=== PATIENT | female | born 1985 | race Caucasian/White ===

== ENCOUNTER 2016-12-16 07:47 | Emergency (ER) | payer MEDICAID, OTHER ==
[~2016-12-16] VITALS: Wt 77.0 kg
[~2016-12-16 07:47] MED LIST: BEN50 PO; NO MEDS; PRED20TA PO; PREN1TAB49
[2016-12-16] MEDS ORDERED: ONDANSETRON (ODT) 4 MG TAB ODT STA (08:05)
--- NOTE | 2016-12-16 08:09 | ERD ---
ER Documentation Chief Complaint Date/Time DATE: 12/16/16 TIME: 08:06 Chief Complaint VAG BLEED INTERMITTENT FOR 1 WK . MILD DYSURIA. NO CRAMPING. 7 WKS PREG HPI This a 31-year-old female who presents the emergency department today complaining of some vaginal spotting that has been intermittent for the past week and worse last night. Patient indicates she is approximately 7 weeks . States that last week she saw her primary care doctor and had plans referral to an [facility]. States that they cindi labs and checked her urine. States she has some dysuria. Denies any fevers or chills. States she has some nausea but no vomiting. ROS All systems reviewed and are negative except as per history of present illness. Medications Home Meds Active Scripts Ondansetron Hcl* (Zofran*) 4 Mg Tablet, 4 MG PO Q6H for NAUSEA AND/OR VOMITING, #30 TAB Prov:BRY KAM PA-C 12/16/16 Acetaminophen* (Tylophen*) 500 Mg Capsule, 1 CAP PO Q6H Y for PAIN AND OR ELEVATED TEMP, #30 CAP Prov:BRY KAM PA-C 12/16/16 Diphenhydramine Hcl* (Benadryl*) 50 Mg Cap, 50 MG PO Q6H Y for rash,itch, #14 CAP Prov:CORAL ENCARNACION DO 08/15/15 Prednisone* (Prednisone*) 20 Mg Tab, 40 MG PO DAILY for 5 Days, TAB Prov:CORAL ENCARNACION DO 08/15/15 Reported Medications [No Meds] No Conflict Check 07/30/10 Vits W-Ca,Fe,Fa(<1MG) () 1 Tab Tablet 10/11/09 Allergies Allergies: Coded Allergies: Sulfa (Sulfonamide Antibiotics) (Verified Allergy, Unknown, 08/15/15) PMhx/Soc History of Surgery: No Anesthesia Reaction: No Hx Neurological Disorder: No Hx Respiratory Disorders: No Hx Cardiac Disorders: No Hx Psychiatric Problems: No Hx Miscellaneous Medical Probl: No Hx Alcohol Use: No Hx Substance Use: No Hx Tobacco Use: No Physical Exam Vitals Vital Signs Date Time Temp Pulse Resp B/P Pulse Ox O2 Delivery O2 Flow Rate FiO2 12/16/16 07:52 97.9 89 20 130/82 100 Physical Exam Const: No acute distress Head: Atraumatic Eyes: Normal Conjunctiva ENT: Normal External Ears, Nose and Mouth. Neck: Full range of motion..~ No meningismus. Resp: Clear to auscultation bilaterally Cardio: Regular rate and rhythm, no murmurs Abd: Soft, non tender, non distended. Normal bowel sounds Skin: No petechiae or rashes Neur: Awake and alert Psych: Normal Mood and Affect Result Diagram: 12/16/16817 Results 24 hrs Laboratory Tests Test 12/16/16 08:16 12/16/16 08:18 Urine Color LT. YELLOW Urine Clarity CLEAR Urine pH 5.5 Urine Specific [place] 1.025 Urine Ketones NEGATIVE Urine Nitrite NEGATIVE Urine Bilirubin NEGATIVE Urine Urobilinogen 0.2 E.U./dL Urine Leukocyte Esterase NEGATIVE Urine Microscopic RBC 0-2/HPF Urine Microscopic WBC 0-2/HPF Urine Epithelial Cells FEW Urine Bacteria FEW Urine Hemoglobin 2+ Urine Glucose 0.1%% Urine Total Protein NEGATIVE White Blood Count 7.210^3/ul Red Blood Count 4.1910^6/ul Hemoglobin 13.2g/dl Hematocrit 39.7% Mean Corpuscular Volume 94.7fl Mean Corpuscular Hemoglobin 31.5pg Mean Corpuscular Hemoglobin Concent 33.2g/dl Red Cell Distribution Width 13.1% Platelet Count 44822^3/UL Mean Platelet Volume 9.0fl Neutrophils % 66.9% Lymphocytes % 25.9% Monocytes % 6.3% Eosinophils % 0.4% Basophils % 0.4% Nucleated Red Blood Cells % 0.0/100WBC Neutrophils # 4.810^3/ul Lymphocytes # 1.910^3/ul Monocytes # 0.510^3/ul Eosinophils # 0.010^3/ul Basophils # 0.010^3/ul Nucleated Red Blood Cells # 0.010^3/ul Beta HCG, Quantitative 59558.0mIU/ml Current Medications Medications (Trade) Dose Ordered Sig/Saroj Route PRN Reason Start Time Stop Time Status Last Admin Dose Admin Ondansetron HCl (Zofran Odt) 4 mg ONCE STAT ODT 12/16/16 08:05 12/16/16 08:07 DC 12/16/16 08:21 DIAGNOSTIC IMAGING REPORT Patient: RAMIRO WHATLEY : 1985 Age: 31 Sex: F MR #: [id number] DOS: 12/16/16 0805 Ordering MD: BRY KAM PA-C Location: [facility] Room/Bed: PROCEDURE: US Obstetric less than 14 weeks. CLINICAL INDICATION: , vaginal bleeding TECHNIQUE: Transabdominal and transvaginal imaging of the pelvis was performed. Images are reviewed on a high-resolution PACS workstation. COMPARISON: None available FINDINGS: Single intrauterine gestation is identified. heart rate is 122 bpm. [place]-rump length = 4.9 cm. Gestational age is 6 weeks 1 day and YULISSA is 08/10/2017 by ultrasound criteria. Cervical Nabothian cyst is incidentally noted. Right ovary is unremarkable. Left ovary demonstrates a 2.4 cm simple cyst. No ovarian torsion, adnexal mass or pelvic free fluid is identified. IMPRESSION: 1. Single live intrauterine with an estimated gestational age of 6 weeks 1 day by ultrasound criteria, as above. 2. Left ovary demonstrates a 2.4 cm simple cyst. No sonographic evidence of ectopic gestation is seen at this time. RPTAT: EE .Marco Bustos MD, MD Date Time Electronically viewed and signed by .Marco Bustos MD, MD on 12/16/2016 09: 09 .R/ CC: BRY KAM PA-C Procedures/MDM This a A1 31-year-old female who presents to the emergency department today complaining of intermittent vaginal spotting for the past week that is worse last night. Patient indicates she is approximately 7 weeks . Given this I did obtain a complete OB workup/. Laboratory work shows no elevated white blood cell count. She is not anemic. UA is negative for infection however there is a small amount of glucose in the urine. I have explained to the patient that she does need to follow-up with an [facility] clinic for further evaluation for possible gestational diabetes. Beta quant hCG 24591 Rh status O negative. Patient was given RhoGam. Ultrasound shows a single live intrauterine with an estimated gestational age of 6 weeks and 1 day by ultrasound criteria. heart rate is 122 bpm. Estimated date of delivery is 08/10/2017. The left ovary demonstrates a 2.4 simple cyst. There is no ovarian torsion, adnexal mass or pelvic free fluid noted. Patient symptoms at this time is consistent with early failed versus early normal . I have explained this to the patient and have also explained that she may continue to have vaginal bleeding.. She should get a repeat beta quant in 48 hours. I have explained to her that she will need to follow-up with her doctor or return here to the emergency department. She was given Zofran here in the emergency department. I will give her prescription for home. Patient denies any abdominal pain on physical exam however I will give her prescription for Tylenol for home. At this time the patient is stable for discharge and outpatient management. Patient should follow up with their PCP in the next 1-2 days. Patient was given a list of resources for [facility] clinic. They may return to the emergency department sooner for any persistent or worsening of symptoms. Patient understood and agreed with the plan. Departure Diagnosis: Primary Impression: Vaginal bleeding in patient at less than 20 weeks gestation Condition: BRY Waddell PA-C December 16, 2016 08:08
[2016-12-16 08:23] LABS: ADD SCAN DIFF NO
[2016-12-16 08:32] LABS: BASOPHILS % 0.4 % (0.0-2.0); EOSINOPHILS % 0.4 % (0.0-7.0); HEMATOCRIT 39.7 % (37.0-47.0); HEMOGLOBIN 13.2 g/dl (12.0-16.0); LYMPHOCYTES # 1.9 10^3/ul (0.8-2.9); LYMPHOCYTES % 25.9 % (15.0-51.0); MEAN CORPUSCULAR HEMOGLOBIN 31.5 pg (29.0-33.0); MEAN CORPUSCULAR HGB CONC 33.2 g/dl (32.0-37.0); MEAN CORPUSCULAR VOLUME 94.7 fl (82.0-101.0); MONOCYTE # 0.5 10^3/ul (0.3-0.9); MONOCYTES % 6.3 % (0.0-11.0); NEUTROPHIL # 4.8 10^3/ul (1.6-7.5); NEUTROPHILS % 66.9 % (39.0-77.0); PLATELET COUNT 305 10^3/UL (140-415); RED BLOOD COUNT 4.19 10^6/ul (4.20-5.40); RED CELL DISTRIBUTION WIDTH 13.1 % (11.5-14.5); WHITE BLOOD COUNT 7.2 10^3/ul (4.8-10.8)
[2016-12-16 08:51] LABS: ADD UMIC YES; URINE BILIRUBIN (Dip) NEGATIVE (NEGATIVE); URINE BLOOD (Dip) 2+ (NEGATIVE); URINE COLOR LT. YELLOW (YELLOW); URINE KETONES (Dip) NEGATIVE (NEGATIVE); URINE LEUKOCYTE ESTERASE (Dip) NEGATIVE (NEGATIVE); URINE NITRITE (Dip) NEGATIVE (NEGATIVE); URINE TOTAL PROTEIN (Dip) NEGATIVE (NEGATIVE); URINE UROBILINOGEN (Dip) 0.2 E.U./dL (0.1-1.0)
--- NOTE | 2016-12-16 09:09 | RADRPT ---
PROCEDURE: US Obstetric less than 14 weeks. CLINICAL INDICATION: , vaginal bleeding TECHNIQUE: Transabdominal and transvaginal imaging of the pelvis was performed. Images are review ed on a high-resolution PACS workstation. COMPARISON: None available FINDINGS: Single intrauterine gestation is identified. heart rate is 122 bpm. [place]-rump length = 4.9 cm. Gestational age is 6 weeks 1 day and YULISSA is 08/10/2017 by ultrasound criteria. Cervical Nabothian cyst is incidentally noted. Right ovary is unremarkable. Left ovary demonstrates a 2.4 cm simple cyst. No ovarian torsion, adnexal mass or pelvic free fluid is identified. IMPRESSION: 1. Single live intrauterine with an estimated gestational age of 6 weeks 1 day by ultraso und criteria, as above. 2. Left ovary demonstrates a 2.4 cm simple cyst. No sonographic evidence of ectopic gestation is s een at this time. RPTAT: EE .Marco Bustos MD, MD Date Time Electronically viewed and signed by .Marco Bustos MD, on 12/16/2016 09:09 .R/
[2016-12-16 09:22] LABS: BACTERIA,URINE FEW; URINE RBCS 0-2 /HPF (0)
[2016-12-16] MEDS ORDERED: ONDA4TAB8 PO (10:00)
[2016-12-16] MEDS ORDERED: ACET500C5 PO (10:00)
== END 2016-12-16 10:29 | disposition home or self-care (01) ==
LOC: FTE 07:47
DX: O20.9 Hemorrhage in early pregnancy, unspecified (principal); Z3A.01 Less than 8 weeks gestation of pregnancy
CPT/HCPCS: 76801; 76817; 81001; 84702; 85025; 86900; 86901; J2790; Z7502; Z7610; 81003